=== PATIENT | male | born 1955 | race Caucasian/White ===

== ENCOUNTER 2024-11-02 08:19 | Emergency (ER) | payer OTHER, MEDICARE ==
[~2024-11-02] VITALS: Ht 182.9 cm; Wt 97.7 kg
[2024-11-02] MEDS: ONDANSETRON 4MG 2ML VIAL IV ONE (09:08)
[2024-11-02 09:17] LABS: BASO # 0.0 10^3/uL (0.0-0.2); BASO % 0.7 % (0.0-1.0); EOS # 0.1 10^3/uL (0.0-0.5); EOS % 1.3 % (0.0-3.0); LYMPH # 1.1 10^3/uL (1.5-5.0); LYMPH % 17.5 % (24.0-44.0); MONO # 0.3 10^3/uL (0.0-0.8); MONO % 5.1 % (2.0-8.0); NEUTROPHILS # 4.6 10^3/uL (1.5-8.5); NEUTROPHILS % 74.7 % (36.0-66.0)
[2024-11-02 09:39] LABS: CK-MB VALUE MASS 2.5 NG/ML (<3.6)
[2024-11-02 09:41] LABS: ALT/SGPT 42 U/L (7.0-40); AST/SGOT 27 U/L (<34); CALCIUM LEVEL 10.4 MG/DL (8.3-10.6); CARBON DIOXIDE LEVEL 25 MMOL/L (20-31); CHLORIDE LEVEL 109 MMOL/L (98-107); CREATININE FOR GFR 1.18 MG/DL (0.70-1.30); GLOMERULAR FILTRATION RATE 67.6 (>49); POTASSIUM SERUM 4.3 MMOL/L (3.5-5.1); SODIUM LEVEL 145 MMOL/L (136-145)
[2024-11-02 09:43] LABS: FREE T4 1.04 NG/DL (0.89-1.76)
[2024-11-02 09:44] LABS: CPK CREATINE PHOSPHOKINASE 115 U/L (46-171); MB/CK RELATIVE INDEX 2.17 (< OR =4)
[2024-11-02 09:57] LABS: PLATELET COUNT, AUTOMATED 90 10^3/uL (150-450)
[2024-11-02 10:07] LABS: INR 1.01
[2024-11-02] MEDS: NS (Normal Saline) 0.9% 1,000 ML IV SCH (10:14)
[2024-11-02] MEDS: MECLIZINE 25 MG TABLET PO ONE (10:14)
[2024-11-02 10:29] LABS: CK-MB VALUE MASS 2.8 NG/ML (<3.6)
[2024-11-02 10:34] LABS: CPK CREATINE PHOSPHOKINASE 122 U/L (46-171); MB/CK RELATIVE INDEX 2.29 (< OR =4)
[2024-11-02 11:59] LABS: KETONE, URINE AUTO RFX NEGATIVE (NEGATIVE); LEUKOCYTE ESTERASE UR AUTO RFX NEGATIVE (NEGATIVE); MUCUS, URINE RFX SMALL (NEGATIVE); NITRITE, URINE AUTO RFX NEGATIVE (NEGATIVE); RBC, URINE AUTO RFX 6 /HPF (0-3); SQUAM EPITHELIAL CELL UR AURFX 0 /HPF (0-6); WBC, URINE AUTO RFX 1 /HPF (0-3)
[2024-11-02] MEDS: NS 500 ML IV ONE (12:57)
[2024-11-02] MEDS ORDERED: MECL-209 PO (14:03)
[2024-11-02] MEDS ORDERED: ONDA-282 PO (14:03)
[2024-11-02 14:15] VITALS: BP 133/64; TEMP 96.8; O2SAT 99
== END 2024-11-02 14:15 | disposition home or self-care (01) ==
LOC: EDBD 08:19 → M ED 08:19
DX: S09.90XA Unspecified injury of head, initial encounter (principal); H81.399 Other peripheral vertigo, unspecified ear; D69.6 Thrombocytopenia, unspecified; R00.1 Bradycardia, unspecified; M19.019 Primary osteoarthritis, unspecified shoulder; I25.10 Atherosclerotic heart disease of native coronary artery without angina pectoris; F32.A Depression, unspecified; F31.9 Bipolar disorder, unspecified; F42.9 Obsessive-compulsive disorder, unspecified; Z79.899 Other long term (current) drug therapy
CPT/HCPCS: 51701; 70450; 71045; 72125; 73030; 73130; 73590; 80048; 80076; 81001; 82550; 82553; 84439; 84443; 84484; 85025; 85049; 85055; 85610; 85730; 93005; 93041; 94760; 96360; 96361; 99285; J2405